=== PATIENT | male | born 1960 | race African-American/Black ===

== ENCOUNTER 2019-05-06 22:25 | Emergency (ER) | payer MEDICAID ==
[~2019-05-06] VITALS: Ht 188 cm; Wt 93.4 kg
[2019-05-06 22:30] VITALS: BP 194/91
[2019-05-06] MEDS ORDERED: PRED20TA PO (22:40)
[2019-05-06] MEDS ORDERED: NAPR-695 PO (22:40)
[2019-05-06] MEDS ORDERED: ORPH100T PO (22:40)
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
[2019-05-06] MEDS ORDERED: DEXAMETHASONE 4 MG TABLET PO ONE (22:45)
[2019-05-06] MEDS ORDERED: KETOROLAC 15 MG/ML VIAL. IM ONE (22:45)
== END 2019-05-06 23:25 | disposition home or self-care (01) ==
LOC: ER 22:25
DX: G89.29 Other chronic pain (principal); M54.2 Cervicalgia; M25.511 Pain in right shoulder; I10 Essential (primary) hypertension; F17.200 Nicotine dependence, unspecified, uncomplicated; Z89.612 Acquired absence of left leg above knee
CPT/HCPCS: 29105; 96372; 99283; J1885; J8540

== ENCOUNTER → 2020-04-05 | Outpatient (CLI) | payer MEDICAID ==
[~2020-04-05] MED LIST: LISI-130 PO; NAPR-695 PO; ORPH100T PO; PRED20TA PO
== END | disposition home or self-care (01) ==
LOC: LAB 12:45
PROVIDERS: ATTEND Ophthalmology
DX: Z01.818 Encounter for other preprocedural examination (principal); Z11.59 Encounter for screening for other viral diseases; H25.11 Age-related nuclear cataract, right eye
CPT/HCPCS: C9803; U0003

== ENCOUNTER → 2020-04-09 | Day surgery (SDC) | payer MEDICAID ==
[~2020-04-09] MED LIST changes: +BALANCED SALT IRRIG OPHTH SOLN 15 ML BOTTLE. IO ONE; +CHONDROIT-SOD-HYALURONATE KIT. ONE; +CHONDROITIN-SOD-HYALURONATE 0.5 ML DISP.SYRIN. ONE; +CIPROFLOXACIN 0.3% OPHTH SOLUTION 5ML BOTTLE. OS ONE; +HYDROmorphone 2 MG/ML VIAL IV PRN; +IV RINGERS,LACTATED 1000ML 1,000 ML IV SCH; +LIDOCAINE 1% PF 2 ML VIAL. ID PRN; +LIDOCAINE 1%/PHENYLEPH 1.5% PF OPHTH 1 ML VIAL. ONE; +LIDOCAINE 2% JELLY 6ML IN APPLICATOR. ONE; +LIDOCAINE 2% JELLY 6ML IN APPLICATOR. OS ONE; +MIDAZOLAM HCL/PF 2 MG/2 ML VIAL. ONE; +MORPHINE SULFATE 2 MG/ML VIAL. IV PRN; +NEO/POLYMYX/DEXAMETH OPHTH OINTMENT 3.5GM TUBE. OS ONE; +ONDANSETRON PF 4 MG/2 ML VIAL. IV PRN; +PROCHLORPERAZINE 10 MG/2 ML VIAL. IV PRN; +PROPARACAINE 0.5% OPHTH SOLUTION 15ML BOTTLE. OS ONE; +fentaNYL PF VIAL 100 MCG/2 ML VIAL IV PRN
[2020-04-09] MEDS: CYCLOPENTOLATE 1% OPHTH SOLUTION 2ML BOTTLE. OS SCH ×3 (09:34→09:43)
[2020-04-09] MEDS: PHENYLEPHRINE 10% OPHTH SOLUTION 5ML BOTTLE. OS SCH ×3 (09:34→09:43)
[2020-04-09 11:47] VITALS: BP 143/92
--- NOTE | 2020-04-09 11:56 | OP ---
DATE OF SURGERY: 04/09/2020 PREOPERATIVE DIAGNOSIS: Cataract of the left eye. PROCEDURES: Phacoemulsification with posterior chamber intraocular lens implantation of the left eye. INDICATION: Painless progressive visual loss and difficulty reading. SURGEON: Penelope Ellison MD ANESTHESIA: Topical with monitored anesthesia care. DESCRIPTION OF PROCEDURE: The left eye was prepped with Betadine in the usual sterile fashion and draped. A paracentesis was performed followed by instillation of preservative-free phenylephrine 2.5% and 1% lidocaine. Viscoelastic was injected in the anterior chamber and temporal clear corneal incision was made. A capsulorrhexis was performed followed by hydro expression and Viscoat sandwich of the nucleus. The phacoemulsification handpiece was used to remove the nucleus and the I/A handpiece was used to remove the remainder of the cortex. Balanced salt solution was used to hydrate the corneal wounds and the viscoelastic evacuated with the I/A handpiece. Once no leak was noted, Maxitrol was placed on the eye and the eye shield and the patient was sent to the recovery room uneventfully. PENELOPE ELLISON MD DR: OSCAR/luisa JOB#: [id number] / [id number]
== END ==
LOC: SURG 09:01
PROVIDERS: ATTEND Ophthalmology
DX: H25.12 Age-related nuclear cataract, left eye (principal)
CPT/HCPCS: 66984; C1780; J0171; J0690; J1580; J2250; J3490

== ENCOUNTER 2020-10-24 11:15 | Inpatient (IN) | payer MEDICAID ==
[~2020-10-24] VITALS: Ht 185.4 cm; Wt 88.0 kg
[~2020-10-24 11:15] MED LIST changes: -BALANCED SALT IRRIG OPHTH SOLN 15 ML BOTTLE. IO ONE; -CHONDROIT-SOD-HYALURONATE KIT. ONE; -CHONDROITIN-SOD-HYALURONATE 0.5 ML DISP.SYRIN. ONE; -CIPROFLOXACIN 0.3% OPHTH SOLUTION 5ML BOTTLE. OS ONE; -HYDROmorphone 2 MG/ML VIAL IV PRN; -IV RINGERS,LACTATED 1000ML 1,000 ML IV SCH; -LIDOCAINE 1% PF 2 ML VIAL. ID PRN; -LIDOCAINE 1%/PHENYLEPH 1.5% PF OPHTH 1 ML VIAL. ONE; -LIDOCAINE 2% JELLY 6ML IN APPLICATOR. ONE; -LIDOCAINE 2% JELLY 6ML IN APPLICATOR. OS ONE; -MIDAZOLAM HCL/PF 2 MG/2 ML VIAL. ONE; -MORPHINE SULFATE 2 MG/ML VIAL. IV PRN; -NEO/POLYMYX/DEXAMETH OPHTH OINTMENT 3.5GM TUBE. OS ONE; -ONDANSETRON PF 4 MG/2 ML VIAL. IV PRN; -PROCHLORPERAZINE 10 MG/2 ML VIAL. IV PRN; -PROPARACAINE 0.5% OPHTH SOLUTION 15ML BOTTLE. OS ONE; -fentaNYL PF VIAL 100 MCG/2 ML VIAL IV PRN
[2020-10-24] MEDS ORDERED: VANCOMYCIN 2 GM in IV NORMAL SALINE 500ML BAG 500 ML IV ONE (12:00)
[2020-10-24] MEDS ORDERED: VANCOMYCIN PER PHARMACY MC PRN (12:00)
[2020-10-24] MEDS ORDERED: ONDANSETRON PF 4 MG/2 ML VIAL. IV PRN (12:00)
[2020-10-24] MEDS ORDERED: PIP/TAZO PER PHARMACY MC PRN ×2 (12:00→13:30)
[2020-10-24] MEDS ORDERED: MORPHINE SULFATE 4 MG/ML VIAL. IV ONE (12:00)
[2020-10-24] MEDS ORDERED: ONDANSETRON PF 4 MG/2 ML VIAL. IV ONE (12:00)
[2020-10-24] MEDS ORDERED: MORPHINE SULFATE 4 MG/ML VIAL. IV PRN (12:00)
[2020-10-24] MEDS ORDERED: PIPERACILLIN/TAZOBACTAM 3.375 GM in IV NORMAL SALINE 50ML 50 ML IV ONE (12:00)
[2020-10-24] MEDS ORDERED: IV NORMAL SALINE 1000ML BAG 1,000 ML IV ONE (12:00)
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
[2020-10-24 12:41] LABS: BASO % 0 % (0-3); EOS # 0.1 x10^3/uL (0.0-0.7); EOS % 1 % (0-3); HEMATOCRIT 36.8 % (39.0-53.0); HEMOGLOBIN 11.9 g/dL (13.0-17.5); LYMPH # 0.8 x10^3/uL (1.0-4.8); LYMPH % 9 % (24-48); MEAN CORPUSCULAR HEMOGLOBIN 25 pg (25-35); MEAN CORPUSCULAR HGB CONC 32 g/dL (31-37); MEAN CORPUSCULAR VOLUME 78 fL (79-100); MONO # 0.6 x10^3/uL (0.0-1.1); MONO % 7 % (0-9); NEUT # 6.8 x10^3/uL (1.8-7.7); NEUT % 83 % (31-73); PLATELET COUNT 233 x10^3/uL (140-400); RED BLOOD COUNT 4.71 x10^6/uL (4.30-5.70); RED CELL DISTRIBUTION WIDTH 13.2 % (11.5-14.5); WHITE BLOOD COUNT 8.2 x10^3/uL (4.0-11.0)
[2020-10-24 12:54] LABS: CALCIUM 8.5 mg/dL (8.5-10.1); CREATININE 0.7 mg/dL (0.7-1.3); GFR 138.3; POTASSIUM 3.9 mmol/L (3.5-5.1)
[2020-10-24 13:00] LABS: ALBUMIN 3.2 g/dL (3.4-5.0); ALBUMIN/GLOBULIN RATIO 0.8 (1.0-1.7); TOTAL BILIRUBIN 0.6 mg/dL (0.2-1.0)
[2020-10-24] MEDS ORDERED: IOHEXOL 300 MG/ML 100ML VIAL. IV ONE (13:15)
[2020-10-24] MEDS ORDERED: CONTRAST GIVEN. MC PRN (13:15)
[2020-10-24 13:20] VITALS: BP 162/88
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
[2020-10-24 14:29] VITALS: BP 157/92
[2020-10-24] MEDS: VANCOMYCIN PER PHARMACY MC PRN (14:37)
--- NOTE | 2020-10-24 14:40 | NUR ---
Pharmacy Vancomycin Dosing Note S: Consulted to monitor and dose vancomycin started 10/24/20. O: MAURA BAH is a 60 year old M with Abscess, Cellulitis Other Antibiotics: ZOSYN LABS: Last BUN: 10 Last Creatinine: 0.7 Creatinine Clearance: > 100 mL/min Last WBC: 8.2 Tmax (past 24 hours): 98.7 Vancomycin Dosing: Dosing Weight: Actual Target Trough: 10-20 A: Based on: VANCO dosing guidelines P: 1. Begin Vancomycin 2000mg LOAD dose then 1500 mg IV q12h 2. Follow up Trough level on 10/26/20 at 0030 3. Pharmacy will continue to monitor, follow and adjust therapy as needed. FAZAL NEGRO, [facility] [place], 10/24/20 [id number]
[2020-10-24] MEDS ORDERED: FLU VACC QS 2020-21(6MOS+)/PF 0.5 ML SYRINGE. VAX IM ONE (15:00)
[2020-10-24] MEDS: PIPERACILLIN/TAZOBACTAM 3.375 GM in IV NORMAL SALINE 50ML 50 ML IV SCH ×2 (18:08→23:07)
[2020-10-24 19:00] VITALS: BP 141/80
[2020-10-24 22:52] VITALS: BP 162/95
[2020-10-24] MEDS ORDERED: amLODIPine BESYLATE 5 MG TABLET PO ONE (23:00)
[2020-10-25] MEDS: VANCOMYCIN 1.5 GM in IV NORMAL SALINE 500ML BAG 500 ML IV SCH ×2 (00:08→13:53)
[2020-10-25 03:00] VITALS: BP 131/63
[2020-10-25] MEDS: PIPERACILLIN/TAZOBACTAM 3.375 GM in IV NORMAL SALINE 50ML 50 ML IV SCH ×4 (05:23→23:37)
[2020-10-25 07:00] VITALS: BP 145/85
[2020-10-25] MEDS: LISINOPRIL 20 MG TABLET PO SCH (08:32)
--- NOTE | 2020-10-25 09:39 | NUR ---
SW following. Discussed with RN, pt from home alone, room air, cardiac diet, IV abx. RN advised no SW needs at this time. SW will continue to follow.
[2020-10-25 10:26] VITALS: BP 153/84
--- NOTE | 2020-10-25 10:56 | PDOC ---
[employer] PROGRESS NOTE Date of Service DOS: DATE: 10/25/20 TIME: 10:52 Chief Complaint Chief Complaint Abscess of the face Purulent discharge in right eye, near abscess Hypertension (145/85 as of 10/25) History of Present Illness History of Present Illness 10/25/2020 Patient seen and examined today Patient resting comfortably in room Patient cheerful and pleasant Appears better than initial presentation Discussed with RN Discussed with medical laboratory manager Charts reviewed Vitals/I&O Vitals/I&O: Vital Signs Date Time Temp Pulse Resp B/P (MAP) Pulse Ox O2 Delivery O2 Flow Rate FiO2 10/25/20 10:26 98.1 81 18 153/84 (107) 97 Room Air 98.1 I & O 10/24/20 10/24/20 10/25/20 15:00 23:00 07:00 Intake Total 550 ml Output Total 725 ml Balance -175 ml Physical Exam General: Alert, Oriented X3 Heart: Regular rate, No murmurs Lungs: Clear Abdomen: Normal bowel sounds, No tenderness Extremities: No clubbing, No edema Skin: No rashes, No significant lesion Labs Labs: Laboratory Tests Test 10/24/20 12:26 White Blood Count 8.2 x10^3/uL (4.0-11.0) Red Blood Count 4.71 x10^6/uL (4.30-5.70) Hemoglobin 11.9 g/dL (13.0-17.5) Hematocrit 36.8 % (39.0-53.0) Mean Corpuscular Volume 78 fL (79-100) Mean Corpuscular Hemoglobin 25 pg (25-35) Mean Corpuscular Hemoglobin Concent 32 g/dL (31-37) Red Cell Distribution Width 13.2 % (11.5-14.5) Platelet Count 233 x10^3/uL (140-400) Neutrophils (%) (Auto) 83 % (31-73) Lymphocytes (%) (Auto) 9 % (24-48) Monocytes (%) (Auto) 7 % (0-9) Eosinophils (%) (Auto) 1 % (0-3) Basophils (%) (Auto) 0 % (0-3) Neutrophils # (Auto) 6.8 x10^3/uL (1.8-7.7) Lymphocytes # (Auto) 0.8 x10^3/uL (1.0-4.8) Monocytes # (Auto) 0.6 x10^3/uL (0.0-1.1) Eosinophils # (Auto) 0.1 x10^3/uL (0.0-0.7) Basophils # (Auto) 0.0 x10^3/uL (0.0-0.2) Sodium Level 137 mmol/L (136-145) Potassium Level 3.9 mmol/L (3.5-5.1) Chloride Level 100 mmol/L (98-107) Carbon Dioxide Level 31 mmol/L (21-32) Anion Gap 6 (6-14) Blood Urea Nitrogen 10 mg/dL (8-26) Creatinine 0.7 mg/dL (0.7-1.3) Estimated GFR (Cockcroft-Gault) 138.3 BUN/Creatinine Ratio 14 (6-20) Glucose Level 98 mg/dL (70-99) Lactic Acid Level 0.8 mmol/L (0.4-2.0) Calcium Level 8.5 mg/dL (8.5-10.1) Total Bilirubin 0.6 mg/dL (0.2-1.0) Aspartate Amino Transf (AST/SGOT) 15 U/L (15-37) Alanine Aminotransferase (ALT/SGPT) 19 U/L (16-63) Alkaline Phosphatase 73 U/L (46-116) Total Protein 7.0 g/dL (6.4-8.2) Albumin 3.2 g/dL (3.4-5.0) Albumin/Globulin Ratio 0.8 (1.0-1.7) Review of Systems Review of Systems: No visible lacerations, no visible erythema Assessment and Plan Assessmemt and Plan Problems Medical Problems: (1) Cellulitis and abscess of face Status: Acute ASSESSMENT Abscess of the face Purulent discharge in right eye, near abscess Hypertension (145/85 as of 10/25) PLAN Continue antibiotics Continue monitoring Start Cipro eye drops (1 drop q.i.d for eye discharge) DVT ppx Trend labs Home meds Full code Comment Review of Relevant I have reviewed the following items mumtaz (where applicable) has been applied. Medications: Current Medications Medications (Trade) Dose Ordered Sig/Azeem Route PRN Reason Start Time Stop Time Status Last Admin Dose Admin Sodium Chloride 1,000 ml @ 1,000 mls/hr 1X ONCE IV 10/24/20 12:00 10/24/20 12:59 DC 10/24/20 12:22 Ondansetron HCl (Zofran) 4 mg 1X ONCE IV 10/24/20 12:00 10/24/20 12:01 DC 10/24/20 12:24 Morphine Sulfate (Morphine Sulfate) 4 mg 1X ONCE IV 10/24/20 12:00 10/24/20 12:01 DC 10/24/20 12:23 Vancomycin HCl 2 gm/Sodium Chloride 500 ml @ 250 mls/hr 1X ONCE IV 10/24/20 12:00 10/24/20 13:59 DC 10/24/20 12:25 Piperacillin Sod/ Tazobactam Sod 3.375 gm/Sodium Chloride 50 ml @ 100 mls/hr 1X ONCE IV 10/24/20 12:00 10/24/20 12:29 DC 10/24/20 12:33 Morphine Sulfate (Morphine Sulfate) 4 mg PRN Q2HR PRN IV PAIN 10/24/20 12:00 10/25/20 11:59 10/24/20 20:55 Iohexol (Omnipaque 300 Mg/ml) 75 ml 1X ONCE IV 10/24/20 13:15 10/24/20 13:16 DC 10/24/20 13:12 Vancomycin HCl (Vanco Per Pharmacy) 1 each PRN DAILY PRN MC SEE COMMENTS 10/24/20 13:30 10/24/20 14:37 Influenza Virus Vaccine Quadrival (Fluzone Quad Syringe) 0.5 ml ONCE ONCE VAX IM 10/24/20 15:00 10/24/20 15:01 DC 10/24/20 18:09 Vancomycin HCl 1.5 gm/Sodium Chloride 500 ml @ 250 mls/hr Q12H IV 10/25/20 01:00 10/25/20 00:08 Piperacillin Sod/ Tazobactam Sod 3.375 gm/Sodium Chloride 50 ml @ 100 mls/hr Q6HRS IV 10/24/20 18:00 10/25/20 05:23 Amlodipine Besylate (Norvasc) 5 mg 1X ONCE PO 10/24/20 23:00 10/24/20 23:01 DC 10/24/20 23:07 Lisinopril (Prinivil) 40 mg DAILY PO 10/25/20 09:00 10/25/20 08:32 Justifications for Admission Other Justification JAMA GROVER III DO Oct 25, 2020 10:56
[2020-10-25] MEDS: CIPROFLOXACIN 0.3% OPHTH SOLUTION 5ML BOTTLE. OU SCH ×3 (12:17→18:51)
--- NOTE | 2020-10-25 13:47 | NUR ---
Wound/Ostomy Care Wound Type/Assessment: facial abscess, no open area noted at this time. Face is swollen and indurated. Treatment Recommendations/Plan: covered with telfa bandaid Education provided: PU prevention and WC POC Offloading surface/device: none Recommended Referrals/Tests: none, CT done Discharge Recommendations for dressings: apply dressings to manage drainage
[2020-10-25] MEDS: VANCOMYCIN PER PHARMACY MC PRN (14:07)
[2020-10-25 14:29] VITALS: BP 148/92
[2020-10-25 19:00] VITALS: BP 159/89
[2020-10-25] MEDS: MORPHINE SULFATE 4 MG/ML VIAL. IV PRN ×2 (20:02→23:42)
[2020-10-25] MEDS: LACTOBACILLUS RHAMNOSUS GG 1 CAPSULE. PO SCH (20:02)
[2020-10-25 23:00] VITALS: BP 172/88
[2020-10-26] MEDS: VANCOMYCIN 1.5 GM in IV NORMAL SALINE 500ML BAG 500 ML IV SCH ×2 (01:13→13:30)
[2020-10-26 03:30] VITALS: BP 164/84
[2020-10-26] MEDS: PIPERACILLIN/TAZOBACTAM 3.375 GM in IV NORMAL SALINE 50ML 50 ML IV SCH ×3 (05:47→18:06)
[2020-10-26 07:00] VITALS: BP 136/88
--- NOTE | 2020-10-26 08:39 | PDOC ---
[facility] PROGRESS NOTE Date of Service DOS: DATE: 10/26/20 TIME: 08:35 Chief Complaint Chief Complaint Abscess of the face Purulent discharge in right eye, near abscess Hypertension (145/85 as of 10/25) History of Present Illness History of Present Illness 10/25/2020 Patient seen and examined today Patient resting comfortably in room Patient cheerful and pleasant Appears better than initial presentation Discussed with RN Discussed with embedded case manager Charts reviewed 10/26/2020 Patient seen and examined DWRN Charts reviewed Discussed with embedded case manager Patient appears comfortable and in NAD Vitals/I&O Vitals/I&O: Vital Signs Date Time Temp Pulse Resp B/P (MAP) Pulse Ox O2 Delivery O2 Flow Rate FiO2 10/26/20 03:30 97.8 77 18 164/84 (110) 98 Room Air 97.8 I & O 10/25/20 10/25/20 10/26/20 15:00 23:00 07:00 Intake Total 400 ml Output Total 1400 ml 400 ml Balance -1000 ml -400 ml Physical Exam General: Alert, Oriented X3, No acute distress Heart: Regular rate, Normal S1, Normal S2, No murmurs Lungs: Clear, Wheezing Abdomen: Normal bowel sounds, No tenderness Extremities: No clubbing, No edema Skin: No rashes, No significant lesion Assessment and Plan Assessmemt and Plan Assessment Abscess of the face Purulent discharge in right eye, near abscess Hypertension (145/85 as of 10/25) Plan full code DVT PPX Trend labs PT/OT Appreciate subspecialty input Problems Medical Problems: (1) Cellulitis and abscess of face Status: Acute Comment Review of Relevant I have reviewed the following items mumtaz (where applicable) has been applied. Medications: Current Medications Medications (Trade) Dose Ordered Sig/Azeem Route PRN Reason Start Time Stop Time Status Last Admin Dose Admin Lisinopril (Prinivil) 40 mg DAILY PO 10/25/20 09:00 10/25/20 08:32 Ciprofloxacin (Ciloxan Ophth) 1 drop QID OU 10/25/20 13:00 10/25/20 18:26 Lactobacillus Rhamnosus (Culturelle) 1 cap BID PO 10/25/20 21:00 10/25/20 20:02 Morphine Sulfate (Morphine Sulfate) 4 mg PRN Q2HR PRN IV PAIN 10/25/20 19:00 10/25/20 23:42 Justifications for Admission Other Justification JAMA GROVER III DO Oct 26, 2020 08:39
[2020-10-26] MEDS: LACTOBACILLUS RHAMNOSUS GG 1 CAPSULE. PO SCH ×2 (09:50→20:17)
[2020-10-26] MEDS: CIPROFLOXACIN 0.3% OPHTH SOLUTION 5ML BOTTLE. OU SCH ×4 (09:50→20:17)
[2020-10-26] MEDS: LISINOPRIL 20 MG TABLET PO SCH (09:50)
[2020-10-26 11:00] VITALS: BP 140/87
[2020-10-26 13:06] LABS: VANC TR 14.8 mcg/mL (10.0-20.0)
[2020-10-26] MEDS: VANCOMYCIN PER PHARMACY MC PRN (13:22)
--- NOTE | 2020-10-26 13:22 | NUR ---
Pharmacy Vancomycin Dosing Note S: Consulted to monitor and dose vancomycin started 10/24/20. O: MAURA BAH is a 60 year old M with facial abscess, cellulitis. Other Antibiotics: ZOSYN 3.375G IV Q6HRS LABS: Last BUN: 10 Last Creatinine: 0.7 Creatinine Clearance: > 100 mL/min Last WBC: 8.2 Last Procalcitonin: Tmax (past 24 hours): 98 Microbiology: BLOOD CX (10/24): NGTD I/O: 300/2000 Drug Levels: Last Trough level: 14.8 on 10/26/20 at 1230 Last dose given 10/26/20 at 0113 Vancomycin Dosing: Dosing Weight: Actual Target Trough: 10-20 A: Patient is receiving vancomycin 1500 mg IV q12hrs. A trough of 14.8 mcg/ml is within goal range. P: 1. Continue vancomycin 1500 mg IV q12h 2. Follow up level in 5 - 7 days 3. Pharmacy will continue to monitor, follow and adjust therapy as needed. MARITA AGUDELO [facility], 10/26/20 [id number]
[2020-10-26 15:00] VITALS: BP 153/93
[2020-10-26 19:25] VITALS: BP 166/91
[2020-10-26] MEDS: MORPHINE SULFATE 4 MG/ML VIAL. IV PRN (20:17)
[2020-10-26 23:05] VITALS: BP 148/80
[2020-10-27] MEDS: PIPERACILLIN/TAZOBACTAM 3.375 GM in IV NORMAL SALINE 50ML 50 ML IV SCH ×4 (00:21→17:29)
[2020-10-27] MEDS: MORPHINE SULFATE 4 MG/ML VIAL. IV PRN (01:09)
[2020-10-27] MEDS: VANCOMYCIN 1.5 GM in IV NORMAL SALINE 500ML BAG 500 ML IV SCH ×2 (01:09→13:25)
[2020-10-27 03:05] VITALS: BP 164/95
[2020-10-27 07:00] VITALS: BP 155/95
[2020-10-27] MEDS: CIPROFLOXACIN 0.3% OPHTH SOLUTION 5ML BOTTLE. OU SCH ×4 (08:40→22:21)
[2020-10-27] MEDS: LACTOBACILLUS RHAMNOSUS GG 1 CAPSULE. PO SCH ×2 (08:40→22:21)
[2020-10-27] MEDS: LISINOPRIL 20 MG TABLET PO SCH (08:40)
[2020-10-27 08:59] LABS: CREATININE 0.9 mg/dL (0.7-1.3)
[2020-10-27 09:00] LABS: GFR 103.5
--- NOTE | 2020-10-27 10:10 | PDOC ---
[facility] PROGRESS NOTE Date of Service DOS: DATE: 10/27/20 TIME: 10:06 Chief Complaint Chief Complaint Abscess of the face Purulent discharge in right eye, near abscess Hypertension (164/95 as of 10/27/2020) History of Present Illness History of Present Illness 10/25/2020 Patient seen and examined today Patient resting comfortably in room Patient cheerful and pleasant Appears better than initial presentation Discussed with RN Discussed with geriatric case manager Charts reviewed 10/26/2020 Patient seen and examined DWRN Charts reviewed Discussed with geriatric case manager Patient appears comfortable and in NAD 10/27/2020 Patient seen and examined at bedside today Wound is no longer draining and bandage has been removed Right eye no longer draining Patient complains of rough texture of wound, stating if "feels really hard" Patient was pleasant and cheerful upon examination Discussed with RN Charts reviewed Vitals/I&O Vitals/I&O: Vital Signs Date Time Temp Pulse Resp B/P (MAP) Pulse Ox O2 Delivery O2 Flow Rate FiO2 10/27/20 08:40 70 155/95 10/27/20 07:50 Room Air 10/27/20 07:00 98.1 18 98 98.1 I & O 10/26/20 10/26/20 10/27/20 15:00 23:00 07:00 Intake Total 1030 ml 1250 ml 400 ml Output Total 2000 ml 2100 ml 1650 ml Balance -970 ml -850 ml -1250 ml Physical Exam General: Alert, Oriented X3, No acute distress Heart: Regular rate, Normal S1, Normal S2, No murmurs Lungs: Clear, Wheezing Abdomen: Normal bowel sounds, No tenderness Extremities: No clubbing, No edema Skin: No rashes, No significant lesion Labs Labs: Laboratory Tests Test 10/26/20 12:32 10/27/20 06:15 Vancomycin Level Trough 14.8 mcg/mL (10.0-20.0) Vancomycin Last Dose Date 10/25/20 Vancomycin Last Dose Time 0100 Creatinine 0.9 mg/dL (0.7-1.3) Estimated GFR (Cockcroft-Gault) 103.5 Review of Systems Review of Systems: Denies nausea, vomiting, headache, chest pain,SOB Assessment and Plan Assessmemt and Plan Problems Medical Problems: (1) Cellulitis and abscess of face Status: Acute ASSESSMENT Abscess of the face Purulent discharge in right eye, near abscess Hypertension (164/95 as of 10/27/2020) PLAN Continue antibiotics Continue warm compress Continue IV fluids Discharge disposition possibly tomorrow or next day Start oral analgesic = norco 5/235 q 4hr prn Home meds DVT ppx Trend labs Full code Comment Review of Relevant I have reviewed the following items mumtaz (where applicable) has been applied. Medications: Current Medications Medications (Trade) Dose Ordered Sig/Azeem Route PRN Reason Start Time Stop Time Status Last Admin Dose Admin Vancomycin HCl (Vancomycin Trough Level) 1 each 1X ONCE MC 10/26/20 12:30 10/26/20 12:31 DC 10/26/20 12:30 Justifications for Admission Other Justification JAMA GROVER III DO Oct 27, 2020 10:10
[2020-10-27 11:00] VITALS: BP 121/84
[2020-10-27] MEDS: VANCOMYCIN PER PHARMACY MC PRN (13:25)
[2020-10-27 15:00] VITALS: BP 148/77
[2020-10-27 19:30] VITALS: BP 164/91
[2020-10-27 22:25] VITALS: BP 155/88
[2020-10-28] MEDS: PIPERACILLIN/TAZOBACTAM 3.375 GM in IV NORMAL SALINE 50ML 50 ML IV SCH ×4 (00:11→17:36)
[2020-10-28] MEDS: VANCOMYCIN 1.5 GM in IV NORMAL SALINE 500ML BAG 500 ML IV SCH ×2 (03:21→14:41)
[2020-10-28 03:45] VITALS: BP 150/83
[2020-10-28 07:00] VITALS: BP 173/92
[2020-10-28] MEDS: CIPROFLOXACIN 0.3% OPHTH SOLUTION 5ML BOTTLE. OU SCH ×4 (08:50→20:24)
[2020-10-28] MEDS: LISINOPRIL 20 MG TABLET PO SCH (08:51)
[2020-10-28] MEDS: HYDROcodone/APAP 5/325MG 1 TAB TABLET PO PRN ×2 (08:51→14:41)
[2020-10-28] MEDS: LACTOBACILLUS RHAMNOSUS GG 1 CAPSULE. PO SCH ×2 (08:51→20:23)
[2020-10-28 09:14] LABS: CREATININE 0.8 mg/dL (0.7-1.3); GFR 118.5
--- NOTE | 2020-10-28 10:32 | PDOC ---
[facility] [facility] PROGRESS NOTE Date of Service DOS: DATE: 10/28/20 TIME: 10:26 Chief Complaint Chief Complaint Abscess of the face Purulent discharge in right eye, near abscess Hypertension (173/92 as of 10/28/2020) CT showed phlegmon on R face Drainage from both eyes History of Present Illness History of Present Illness 10/28/20 Patient seen and examined today Patient is resting comfortably in bed Patient complains of a "nagging" headache and L shoulder pain from laying in bed He is having regular bowel movements He complains of the soft tissue infection on the right side of his face feeling like a hard mass. Need to consult surgery regarding phlegmon to see if debridement is needed 10/25/2020 Patient seen and examined today Patient resting comfortably in room Patient cheerful and pleasant Appears better than initial presentation Discussed with RN Discussed with cyanide case hardener Charts reviewed 10/26/2020 Patient seen and examined DWRN Charts reviewed Discussed with cyanide case hardener Patient appears comfortable and in NAD 10/27/2020 Patient seen and examined at bedside today Wound is no longer draining and bandage has been removed Right eye no longer draining Patient complains of rough texture of wound, stating if "feels really hard" Patient was pleasant and cheerful upon examination Discussed with RN Charts reviewed Vitals/I&O Vitals/I&O: Vital Signs Date Time Temp Pulse Resp B/P (MAP) Pulse Ox O2 Delivery O2 Flow Rate FiO2 10/28/20 08:51 Room Air 10/28/20 08:51 58 173/92 10/28/20 07:00 98.2 18 94 98.2 I & O 10/27/20 10/27/20 10/28/20 15:00 23:00 07:00 Intake Total 1000 ml 240 ml Output Total 2300 ml 1700 ml 1300 ml Balance -1300 ml -1700 ml -1060 ml Physical Exam General: Alert, Oriented X3, Cooperative, No acute distress Heart: Regular rate, Normal S1, Normal S2, No murmurs Lungs: Clear, Wheezing Abdomen: Normal bowel sounds, No tenderness Extremities: No clubbing, No edema Skin: No rashes, No significant lesion Labs Labs: Laboratory Tests Test 10/28/20 06:30 Creatinine 0.8 mg/dL (0.7-1.3) Estimated GFR (Cockcroft-Gault) 118.5 Review of Systems Review of Systems: Denies chest pain, nausea, vomiting, SOB Assessment and Plan Assessmemt and Plan Problems Medical Problems: (1) Cellulitis and abscess of face Status: Acute ASSESSMENT Abscess of the face Purulent discharge in right eye, near abscess Hypertension (173/92 as of 10/28/2020) CT showed phlegmon Drainage from both eyes PLAN Switch to PO antibiotics Consult surgery regarding hard to touch mass on R cheek Cipro eye drops for drainage Comment Review of Relevant I have reviewed the following items mumtaz (where applicable) has been applied. Justifications for Admission Other Justification JAMA GROVER III DO Oct 28, 2020 10:32
[2020-10-28] MEDS ORDERED: CIPROFLOXACIN 0.3% OPHTH SOLUTION 5ML BOTTLE. OU ONE (10:45)
--- NOTE | 2020-10-28 10:52 | PDOC ---
ISAAC SULLIVAN PUBLIC SAFETY DIRECTOR 10/28/20 1052: SURGICAL PROGRESS NOTE DATE: 10/28/20 TIME: 10:51 Subjective consult noted, facial trauma, injury not in our scope of practice --if concerns/surgical eval needed would recommend maxillofacial consult Vital Signs Vital Signs Date Time Temp Pulse Resp B/P (MAP) Pulse Ox O2 Delivery O2 Flow Rate FiO2 10/28/20 08:51 Room Air 10/28/20 08:51 58 173/92 10/28/20 07:00 98.2 18 94 98.2 I&O Intake and Output 10/28/20 06:59 Intake Total 1240 ml Output Total 5300 ml Balance -4060 ml Intake Oral 1240 ml Output Urine Total 5300 ml # Voids 3 Labs Laboratory Tests Test 10/26/20 12:32 10/27/20 06:15 10/28/20 06:30 Vancomycin Level Trough 14.8 mcg/mL (10.0-20.0) Vancomycin Last Dose Date 10/25/20 Vancomycin Last Dose Time 0100 Creatinine 0.9 mg/dL (0.7-1.3) 0.8 mg/dL (0.7-1.3) Estimated GFR (Cockcroft-Gault) 103.5 118.5 Laboratory Tests Test 10/28/20 06:30 Creatinine 0.8 mg/dL (0.7-1.3) Estimated GFR (Cockcroft-Gault) 118.5 Problem List Problems Medical Problems: (1) Cellulitis and abscess of face Status: Acute Justicifation of Admission Dx: Justifications for Admission: Justification of Admission Dx: N/A BEA MORENO MD 10/28/20 1304: SURGICAL PROGRESS NOTE Assessment/Plan Agree with Rosa assessment and plan ISAAC SULLIVAN PUBLIC SAFETY DIRECTOR Oct 28, 2020 10:52 BEA MORENO MD Oct 28, 2020 13:04
[2020-10-28 11:00] VITALS: BP 141/71
[2020-10-28 15:00] VITALS: BP 149/86
[2020-10-28] MEDS: VANCOMYCIN PER PHARMACY MC PRN (15:56)
[2020-10-28 19:00] VITALS: BP 148/87
[2020-10-28 23:30] VITALS: BP 148/89
[2020-10-29] MEDS: PIPERACILLIN/TAZOBACTAM 3.375 GM in IV NORMAL SALINE 50ML 50 ML IV SCH ×3 (00:05→11:16)
[2020-10-29] MEDS: VANCOMYCIN 1.5 GM in IV NORMAL SALINE 500ML BAG 500 ML IV SCH ×2 (01:05→13:00)
[2020-10-29 03:00] VITALS: BP 130/75
[2020-10-29 07:00] VITALS: BP 141/82
[2020-10-29] MEDS: LISINOPRIL 20 MG TABLET PO SCH (08:30)
[2020-10-29] MEDS: LACTOBACILLUS RHAMNOSUS GG 1 CAPSULE. PO SCH (08:30)
[2020-10-29] MEDS: CIPROFLOXACIN 0.3% OPHTH SOLUTION 5ML BOTTLE. OU SCH (08:30)
[2020-10-29] MEDS: VANCOMYCIN PER PHARMACY MC PRN (09:36)
--- NOTE | 2020-10-29 09:42 | PDOC ---
[facility] [facility] PROGRESS NOTE Date of Service DOS: DATE: 10/29/20 TIME: 09:29 Chief Complaint Chief Complaint Abscess of the face Purulent discharge in right eye, near abscess Hypertension (173/92 as of 10/28/2020) CT showed phlegmon on R face Drainage from both eyes History of Present Illness History of Present Illness 10/25/2020 Patient seen and examined today Patient resting comfortably in room Patient cheerful and pleasant Appears better than initial presentation Discussed with RN Discussed with case management manager Charts reviewed 10/26/2020 Patient seen and examined DWRN Charts reviewed Discussed with case management manager Patient appears comfortable and in NAD 10/27/2020 Patient seen and examined at bedside today Wound is no longer draining and bandage has been removed Right eye no longer draining Patient complains of rough texture of wound, stating if "feels really hard" Patient was pleasant and cheerful upon examination Discussed with RN Charts reviewed 10/28/20 Patient seen and examined today Patient is resting comfortably in bed Patient complains of a "nagging" headache and L shoulder pain from laying in bed He is having regular bowel movements He complains of the soft tissue infection on the right side of his face feeling like a hard mass. Need to consult surgery regarding phlegmon to see if debridement is needed. 10/29/2020 Patient seen and evaluated. Afebrile. Maxillofacial CT with contrast obtained on admission showing unorganized subcutaneous fluid which may represent phlegmon. Per general surgery, facial debridement is outside their scope of practice, if concerns/surgical eval needed would recommend maxillofacial consult. Consultation was placed oral maxillofacial surgery, but I was unsure if still seeing patients at this facility. Patient reports marked improvement and pain and swelling. He feels comfortable discharging today on oral antibiotics and continuing warm compresses at home. Recommend patient establish primary care in the area. Discussed with RN, will try to set up outpatient follow-up appointment with oral maxillofacial surgery within the next week. Greater than 30 minutes was spent in the discharge this patient. Vitals/I&O Vitals/I&O: Vital Signs Date Time Temp Pulse Resp B/P (MAP) Pulse Ox O2 Delivery O2 Flow Rate FiO2 10/29/20 08:30 69 141/82 10/29/20 07:00 98.0 18 99 Room Air 98.0 I & O 0 10/28/20 10/28/20 10/29/20 15:00 23:00 07:00 Intake Total 200 ml 770 ml Output Total 300 ml 550 ml 900 ml Balance -100 ml -550 ml -130 ml Physical Exam General: Alert, Oriented X3, Cooperative, No acute distress Heart: Regular rate, Normal S1, Normal S2, No murmurs Lungs: Clear, Wheezing Abdomen: Normal bowel sounds, No tenderness Extremities: No clubbing, No edema Skin: No rashes, No significant lesion Assessment and Plan Assessmemt and Plan Problems Medical Problems: (1) Cellulitis and abscess of face Status: Acute Comment Review of Relevant I have reviewed the following items mumtaz (where applicable) has been applied. Medications: Current Medications Medications (Trade) Dose Ordered Sig/Azeem Route PRN Reason Start Time Stop Time Status Last Admin Dose Admin Ciprofloxacin (Ciloxan Ophth) 1 drop 1X ONCE OU 10/28/20 10:45 10/28/20 10:46 DC 10/28/20 11:42 Justifications for Admission Other Justification CLARISSA MCCAIN MD Oct 29, 2020 09:42
--- NOTE | 2020-10-29 10:14 | NUR ---
SW following. Discussed with RN, pt from home alone, room air, cardiac diet, IV abx. Dr. Call consulted - RN trying to reach physician RE consult. SW will continue to follow.
--- NOTE | 2020-10-29 10:36 | PDOC3 ---
Discharge Summary Visit Information Date of Admission: Oct 24, 2020 Date of Discharge: Oct 29, 2020 Final Diagnosis Problems Medical Problems: (1) Cellulitis and abscess of face Status: Acute Brief Hospital Course Allergies Allergies Coded Allergies Type Severity Reaction Last Updated Verified Pork/Porcine Containing Products Allergy Severe 10/27/20 Yes Vital Signs Vital Signs Date Time Temp Pulse Resp B/P (MAP) Pulse Ox O2 Delivery O2 Flow Rate FiO2 10/29/20 08:30 69 141/82 10/29/20 07:00 98.0 18 99 Room Air 98.0 Lab Results Laboratory Tests Test 10/28/20 06:30 Creatinine 0.8 mg/dL (0.7-1.3) Estimated GFR (Cockcroft-Gault) 118.5 Brief Hospital Course Mr. Jimenez is a 60 old male who presented with right-sided facial abscess and cellulitis. He had incision and drainage performed in the ER. He was continued on IV antibiotics. Consultation was placed to general surgery and oral maxillofacial surgery. Unfortunately oral maxillofacial surgery does not routinely perform facial I&D's. Will discharge patient on oral antibiotics, pain medication, recommendations to continue warm compresses at home, and outpatient follow-up with ENT. Discharge Information Condition at Discharge: Improved Follow Up: Weeks Disposition/Orders: D/C to Home Scheduled Lisinopril (Lisinopril) 40 Mg Tablet, 1 TAB PO DAILY for htn, #30 Ref 5 (Reported) Entered as Reported by: Kim Jackson on 04/05/20 1544 Last Taken: Unknown Dose on 10/24/20 Last Action: Continued on 10/24/20 2242 by KAYA DICKINSON Justicifation of Admission Dx: Justifications for Admission: Justification of Admission Dx: N/A CLARISSA MCCAIN MD Oct 29, 2020 10:36
[2020-10-29 11:00] VITALS: BP 132/80
[2020-10-29] MEDS: HYDROcodone/APAP 5/325MG 1 TAB TABLET PO PRN (11:17)
--- NOTE | 2020-10-29 13:53 | NUR ---
Patient DC home today with self care via wheelchair. Patient is stable, IV removed, prescriptions and discharge paperwork given to patient. Patient verbalized understand followup and discharged instruction.
== END 2020-10-29 13:56 | disposition home or self-care (01) | DRG 603 ==
LOC: ER 11:15 → 4 NORTH 11:57
PROVIDERS: ADMIT Internal Medicine; ATTEND Internal Medicine
DX: L02.01 Cutaneous abscess of face (principal); L03.211 Cellulitis of face; F17.200 Nicotine dependence, unspecified, uncomplicated; I10 Essential (primary) hypertension; K05.6 Periodontal disease, unspecified; Z83.3 Family history of diabetes mellitus
CPT/HCPCS: 36415; 70487; 80053; 80202; 82565; 83605; 85025; 87040; 90471; 90686; 96361; 96365; 96368; 96375; J2270; J2405; J2543; J3370; J7030; J7040; Q9967; 99285-25; G0378